=== PATIENT | male | born 1975 | race American Indian/Alaskan Native ===

== ENCOUNTER 2019-03-10 12:15 | Emergency (ER) | payer OTHER ==
--- NOTE | 2019-03-10 12:32 | Emergency Department Report ---
Blank Doc - Documentation Documentation: 43-year-old male that presents with left ankle pain. This initial assessment/diagnostic orders/clinical plan/treatment(s) is/are subject to change based on patient's health status, clinical progression and re- assessment by fellow clinical providers in the ED. Further treatment and workup at subsequent clinical providers discretion. Patient/guardians urged not to elope from the ED as their condition may be serious if not clinically assessed and managed. Initial orders include: 1- Patient sent to [facility] for further evaluation and treatment 2- xrays
[2019-03-10 12:37] VITALS: BP 136/92
--- NOTE | 2019-03-10 13:15 | XRay Report ---
Left ankle, 3 views INDICATION: Pain following injury yesterday FINDINGS: The ankle mortise is intact. There is diffuse soft tissue swelling present. There is an obl ique eversion type fracture of the lateral malleolus with no significant distraction, displacement or angulation. There is a small avulsion as well from the tip of the medial malleolus. No posterior mal leolar fracture. IMPRESSION: Bimalleolar fracture with associated soft tissue swelling. Signer Name: Albin Fairbanks MD Signed: 03/10/2019 1:10 PM Workstation Name: [id number]
[2019-03-10] MEDS ORDERED: KETOROLAC 60 MG/2 ML INJ IM ONE (14:56)
[2019-03-10] MEDS ORDERED: KETOROLAC 60 MG/2 ML INJ ONE (14:59)
--- NOTE | 2019-03-10 15:03 | Emergency Department Report ---
ED General Adult HPI - General Chief complaint: Extremity Injury, Lower Stated complaint: ANKLE Time Seen by Provider: 03/10/19 12:31 Source: patient Mode of arrival: Ambulatory Limitations: No Limitations - History of Present Illness Initial comments: 43 yo BM states that he was participating an exercise at work ([employer]'s office) x 1 day. The pt states that his pain is a 10 while standing and a 6-7 without weight-bearing. -: Sudden Location: lower extremity - Related Data Previous Rx's Medication Instructions Recorded Last Taken Type Ibuprofen [Motrin 600 MG tab] 600 mg PO TID 10 Days #30 tabcap 03/10/19 Unknown Rx Allergies Allergy/AdvReac Type Severity Reaction Status Date / Time No Known Allergies Allergy Verified 03/10/19 15:00 ED Review of Systems ROS: Stated complaint: ANKLE Other details as noted in HPI Comment: All other systems reviewed and negative Skin: as per HPI ED Past Medical Hx - Past Medical History Previous Medical History?: No - Surgical History Past Surgical History?: No - Social History Smoking Status: Never Smoker Substance Use Type: None - Medications Home Medications: Home Medications Medication Instructions Recorded Confirmed Last Taken Type Ibuprofen [Motrin 600 MG tab] 600 mg PO TID 10 Days #30 tabcap 03/10/19 Unknown Rx ED Physical Exam - General Limitations: No Limitations General appearance: alert, in no apparent distress - Head Head exam: Present: atraumatic, normocephalic - Eye Eye exam: Present: normal appearance, PERRL, EOMI - ENT ENT exam: Present: normal exam, normal orophraynx, normal external ear exam - Neck Neck exam: Present: normal inspection, tenderness, full ROM - Respiratory Respiratory exam: Present: normal lung sounds bilaterally. Absent: respiratory distress, chest wall tenderness - Cardiovascular Cardiovascular Exam: Present: regular rate, normal rhythm, normal heart sounds - GI/Abdominal GI/Abdominal exam: Present: soft. Absent: distended, tenderness - Rectal Rectal exam: Present: deferred - Extremities Exam Extremities exam: Present: tenderness, joint swelling, other (L ankle, diffuse swelling, erythema at the anterior proximal ankle, eversion and inversion difficult on active and passive ROM). Absent: full ROM - Back Exam Back exam: Present: normal inspection, full ROM, tenderness - Neurological Exam Neurological exam: Present: alert, altered, oriented X3, abnormal gait - Psychiatric Psychiatric exam: Present: normal affect, normal mood. Absent: depressed - Skin Skin exam: Present: warm, dry, intact, erythema ED Course Vital Signs 03/10/19 12:36 Temperature 97.4 F L Pulse Rate 86 Respiratory 16 Rate Blood Pressure 136/92 O2 Sat by Pulse 96 Oximetry ED Medical Decision Making - Radiology Data [facility] [address] [place] [address] XRay Report Signed Patient: NIKKO ESPARZA MR#: [id number] : 1975 Acct:[id number] Age/Sex: 43 / M ADM Date: 03/10/19 Loc: ED Attending Dr: Ordering Physician: ISIS CAMPBELL NP Date of Service: 03/10/19 Procedure(s): XR ankle 3+V LT Accession Number(s): [id number] cc: ISIS CAMPBELL NP Fluoro Time In Minutes: Left ankle, 3 views INDICATION: Pain following injury yesterday FINDINGS: The ankle mortise is intact. There is diffuse soft tissue swelling present. There is an oblique eversion type fracture of the lateral malleolus with no significant distraction, displacement or angulation. There is a small avulsion as well from the tip of the medial malleolus. No posterior malleolar fracture. IMPRESSION: Bimalleolar fracture with associated soft tissue swelling. Signer Name: Albin Fairbanks MD Signed: 03/10/2019 1:10 PM Workstation Name: [id number] Transcribed By: JM Dictated By: Albin Fairbanks MD Electronically Authenticated By: Albin Fairbanks MD Signed Date/Time: 03/10/19 1310 DD/ 1309 TD/TT: - Medical Decision Making 43 yo BM states that he was participating an exercise at work ([employer]'s office) and hurt his L ankle x 1 day. The pt states that his pain is a 10 while standing and a 6-7 without weight-bearing. The pt was informed that his xray images revealed that he has a L ankle bimalleolar fracture. He was then given a Toradol injection, crutches and a splint was applied. The pt was also referred to ortho and given Ibuprofen for pain. He was instructed to be on light duty with non- weightbearing activities until evaluated by Orthopedist. Pt verbalized understanding and agreed with the plan of care. Critical care attestation.: If time is entered above; I have spent that time in minutes in the direct care of this critically ill patient, excluding procedure time. ED Disposition Clinical Impression: Ankle fracture, bimalleolar, closed Disposition: DC-01 TO HOME OR SELFCARE Is pt being admited?: No Does the pt Need Aspirin: No Condition: Stable Additional Instructions: The pt was referred to Ortho and given Ibuprofen for pain. He was instructed to be on light duty with non-weightbearing activities until evaluated by Orthopedist. Pt verbalized understanding and agreed with the plan of care. Prescriptions: Ibuprofen [Motrin 600 MG tab] 600 mg PO TID 10 Days #30 tabcap Referrals: AURE OSULLIVAN MD [Referring] - 3-5 Days Forms: Work/School Release Form(ED) Time of Disposition: 15:28
== END 2019-03-10 15:57 | disposition home or self-care (01) ==
LOC: ED 12:15
DX: S82.842A Displaced bimalleolar fracture of left lower leg, initial encounter for closed fracture (principal); X58.XXXA Exposure to other specified factors, initial encounter; Y93.B9 Activity, other involving muscle strengthening exercises; Y92.69 Other specified industrial and construction area as the place of occurrence of the external cause; Y99.8 Other external cause status
CPT/HCPCS: 29515; 73610; 96372; 99283; J1885